=== PATIENT | female | born 1930 | race Caucasian/White ===

== ENCOUNTER 2018-01-21 10:51 | Emergency (ER) | payer MEDICARE ==
[~2018-01-21 10:51] MED LIST: (None)250 MG PO; ACETAMIN325 MG PO; ALBUTEROL SUL0.083 % IN; ALL DAY10 MG PO; ALPRAZOLAM0.5 MG PO; ASPIRIN CHEWABL81 MG PO; ASPIRIN EC81 MG PO; ASPIRIN81 MG PO; AVELOX400 MG PO; BL CALCIUM500 MG PO; CATAPRES0.1 MG PO; CENTRUM PO; CIPRO XR500 MG PO; CIPROFLOXACN500 MG PO; COUMADIN5 MG PO; CRANBERRY500 MG OR; DIFLUCAN100 MG PO; DULERA1 AE1 INH; DUONEB INH; FAMOTIDINE20 M1 PO; FLAGYL500 MG PO; FLONASE NASAL50 MCG INH; FLORASTOR250 M1 PO; FUROSEMIDE20 MG PO; IPRATROPIU0.5 MG/3 M IN; IPRATROPIUM BROMIDE/ IN; LASIX 20 MG TAB20 MG PO; LASIX 40 MG TAB40 MG PO; LASIX 40 MG40 MG/TAB PO; LISINOPRIL2.5 MG PO; LISINOPRIL20 MG PO; LOPRESSOR50 M1 PO; LOVASTATIN40 MG PO; METOPROL TAR25 MG PO; METOPROLOL SUCC25 MG PO; METRONIDAZOL500 MG PO; NAPROSYN500 MG PO; NASONEX50 MCG/AC; OCEAN NASAL0.65 % NAB; OS-CAL 500500 MG PO; OXYBUTYNIN5 M1 PO; OXYBUTYNIN5 MG PO; PANTOPRAZOLE SO40 MG PO; POT CHLORIDE10 ME1 PO; POTASSIUM CHLO10 MEQ PO; PRAVASTATIN SOD20 MG PO; PRAVASTATIN20 MG PO; PREDNISONE10 MG PO; PREDNISONE20 MG PO; PREDNISONE5 MG PO; PRESERVISION PO; PRILOSEC40 MG PO; PSYLLIUM OR; SPIRIVA; TOPROL XL100 MG PO; VITAMIN D2000 UNI2 PO; WOMENS DAILY OR; XARELTO10 MG PO; ZITHROMAX500 MG PO
== END 2018-01-21 12:20 | disposition expired ==
LOC: ED 10:51
PROC: 5A12012 Performance of Cardiac Output, Single, Manual (ICD-10-PCS; principal; 2018-01-21)
DX: I46.9 Cardiac arrest, cause unspecified (principal); J44.9 Chronic obstructive pulmonary disease, unspecified; I10 Essential (primary) hypertension